=== PATIENT | female | born 2000 | race Caucasian/White ===

== ENCOUNTER 2025-04-19 10:19 | Outpatient (CLI) | payer OTHER, SELFPAY | END 2025-04-19 10:20 | disposition home or self-care (01) | PROVIDERS: Visit Provider Obstetrics & Gynecology | DX: N92.0 Excessive and frequent menstruation with regular cycle (principal) | CPT/HCPCS: 82627; 82728; 83498; 84146; 84270; 84402; 84403; 84443 ==

== ENCOUNTER 2025-05-02 09:59 | Outpatient (CLI) | payer OTHER, SELFPAY ==
--- NOTE | 2025-05-02 10:15 | CRLHL7_ITS ---
For Patients: As a result of the Century Cures Act, medical imaging exams and procedure reports are released immediately into your electronic medical record. You may view this report before your referring provider. If you have questions, please contact your health care provider. INDICATION: Frequent menstruation. TECHNIQUE: Pelvic ultrasound. Transabdominal and endovaginal imaging. Endovaginal imaging required to visualize ovaries and endometrium. FINDINGS: Uterus: Unremarkable 8 x 4 x 5 cm. Endometrium: Echogenic nodule in the endometrial cavity isoechoic with the endometrium smooth margins 1.4 x 0.5 x 1.7 cm. Ovaries: Sonographically unremarkable. Follicular cysts in the left ovary. Color Doppler flow. Cul-de-sac: No free fluid. IMPRESSION: Smoothly marginated possible endometrial polyp of 1.4 x 1.7 x 0.5 cm. This could be further evaluated with a sonohysterogram. Dictated by Migue Marquez MD @ 05/07/2025 9:13:29 AM (Electronically Signed)
== END 2025-05-02 10:00 | disposition home or self-care (01) ==
LOC: US 09:59
PROVIDERS: Visit Provider Obstetrics & Gynecology
DX: N92.0 Excessive and frequent menstruation with regular cycle (principal)
CPT/HCPCS: 76830; 76856